=== PATIENT | female | born 1995 | race Asian ===

== ENCOUNTER 2023-07-05 13:11 | Emergency (ER) | payer OTHER ==
[~2023-07-05] VITALS: Ht 160 cm; Wt 51.7 kg
[2023-07-05 13:28] VITALS: BP 95/69; PULSE 95; RESP 18; TEMP 98.2; O2SAT 96
[2023-07-05] MEDS ORDERED: FAMOTIDINE 20 MG TAB PO ONE (14:10)
[2023-07-05] MEDS ORDERED: KETOROLAC 30 MG/ML VIAL IM ONE (14:10)
[2023-07-05] MEDS ORDERED: FAMO-92 PO (14:54)
[2023-07-05 15:04] VITALS: BP 111/65; PULSE 74; RESP 17; O2SAT 98
== END 2023-07-05 15:04 | disposition home or self-care (01) ==
LOC: MED 13:11
DX: R07.89 Other chest pain (principal); R10.13 Epigastric pain; Z79.899 Other long term (current) drug therapy
CPT/HCPCS: 71111; 93005; 96372; 99283; J1885